=== PATIENT | female | born 1965 | race Caucasian/White ===

== ENCOUNTER → 2018-08-06 | Outpatient (CLI) | payer OTHER | END | disposition home or self-care (01) | LOC: NUC 09:45 | DX: S72.001 Fracture of unspecified part of neck of right femur (principal); X58.XXXD Exposure to other specified factors, subsequent encounter | CPT/HCPCS: 78315; A9503 ==

== ENCOUNTER → 2018-08-07 | Outpatient (CLI) | payer OTHER | END | disposition home or self-care (01) | LOC: NUC 09:35 | DX: S72.001 Fracture of unspecified part of neck of right femur (principal); X58.XXXD Exposure to other specified factors, subsequent encounter; M16.11 Unilateral primary osteoarthritis, right hip | CPT/HCPCS: 78806 ==

== ENCOUNTER → 2018-11-17 | Outpatient (CLI) | payer OTHER | END | disposition home or self-care (01) | LOC: HKI 09:51 | DX: M25.551 Pain in right hip (principal); M16.7 Other unilateral secondary osteoarthritis of hip | CPT/HCPCS: 73502 ==

== ENCOUNTER 2018-12-02 09:12 | Inpatient (IN) | payer OTHER ==
[2018-12-02] MEDS: ACETAMINOPHEN 1000MG/100ML IV 100 ML IVPB (10:48)
[2018-12-02] MEDS: ONDANSETRON 4 MG INJ IV (10:48)
[2018-12-02] MEDS: LANSOPRAZOLE 30 MG CAP PO (10:49)
[2018-12-02] MEDS: CELECOXIB 200 MG CAP PO (10:49)
[2018-12-02] MEDS: LACTATED RINGER'S 1,000 ML IV ×3 (10:50→20:41)
[2018-12-02 10:58] LABS: ADD MAN DIFF? NO
[2018-12-02 11:02] LABS: BASOPHILS % 0.8 % (0.0-2.0); EOSINOPHILS # 0.1 10^3/ul (0.0-0.5); EOSINOPHILS % 2.7 % (0.0-7.0); HEMOGLOBIN 12.1 g/dl (12.0-16.0); LYMPHOCYTES % 37.4 % (15.0-51.0); MEAN CORPUSCULAR HEMOGLOBIN 27.7 pg (29.0-33.0); MEAN CORPUSCULAR HGB CONC 32.7 g/dl (32.0-37.0); MEAN CORPUSCULAR VOLUME 84.7 fl (82.0-101.0); MEAN PLATELET VOLUME 11.1 fl (7.4-10.4); MONOCYTE # 0.4 10^3/ul (0.3-0.9); MONOCYTES % 6.9 % (0.0-11.0); NEUTROPHIL # 2.7 10^3/ul (1.6-7.5); PLATELET COUNT 180 10^3/UL (140-415); RED BLOOD COUNT 4.37 10^6/ul (4.20-5.40); RED CELL DISTRIBUTION WIDTH 14.6 % (11.5-14.5)
[2018-12-02 11:02] LABS: WHITE BLOOD COUNT 5.2 10^3/ul (4.8-10.8)
[2018-12-02 11:18] LABS: ANION GAP 8 (5-13); BLOOD UREA NITROGEN 16 mg/dl (7-20); CALCIUM 9.8 mg/dl (8.4-10.2); CARBON DIOXIDE 29 mmol/L (21-31); CHLORIDE 108 mmol/L (97-110); CREATININE 0.66 mg/dl (0.44-1.00); Estimated GFR > 60 mL/min (>60); GLUCOSE 95 mg/dl (70-220); POTASSIUM 4.2 mmol/L (3.5-5.1)
[2018-12-02 11:21] LABS: INR 0.94; PARTIAL THROMBOPLASTIN TIME 34.5 Sec (23.0-35.0); PROTIME 12.7 Sec (11.9-14.9)
[2018-12-02 11:27] LABS: SODIUM 145 mmol/L (135-144)
[2018-12-02] MEDS ORDERED: SEVOFLURANE 15 MIN (12:15)
[2018-12-02] MEDS ORDERED: CEFAZOLIN 1 GM INJ (12:15)
[2018-12-02] MEDS ORDERED: FENTAnyl 50 MCG/ML VIAL (12:15)
[2018-12-02] MEDS ORDERED: PROPOFOL 20 ML (12:15)
[2018-12-02] MEDS ORDERED: ROCURONIUM 50 MG INJ ×2 (12:15→13:14)
[2018-12-02] MEDS ORDERED: MIDAZOLAM 1 MG/ML 2 ML INJ (12:16)
[2018-12-02] MEDS ORDERED: LIDOCAINE 2% (SDV) 5 ML INJ (13:14)
[2018-12-02] MEDS ORDERED: DEXAMETHASONE 4 MG/ML 5 ML INJ (13:14)
[2018-12-02] MEDS: VANCOMYCIN 1 GM INJ (13:52)
[2018-12-02] MEDS: TOBRAMYCIN 1.2 GM POWDER (13:52)
[2018-12-02] MEDS: TRANEXAMIC ACID 1GM/100ML(PMX) 100 ML AT CLOSING IVPB (13:54)
[2018-12-02] MEDS: TRANEXAMIC ACID 1GM/100ML(PMX) 100 ML PRE-OP IVPB (13:54)
[2018-12-02] MEDS ORDERED: TRANEXAMIC ACID 1GM/100ML(PMX) 100 ML ×2 (17:06→17:07)
[2018-12-02] MEDS ORDERED: ONDANSETRON 4 MG INJ (17:49)
[2018-12-02] MEDS ORDERED: hydrALAzine 20 MG INJ IV (18:30)
[2018-12-02] MEDS ORDERED: HYDROmorphONE 1 MG/ML SYG IV (18:30)
[2018-12-02] MEDS ORDERED: NALOXONE (0.4 MG/ML) INJ IV (18:30)
[2018-12-02] MEDS ORDERED: NACL 0.9% 3 ML SYG IV (18:30)
[2018-12-02] MEDS ORDERED: MAGNESIUM HYDROXIDE 30ML CUP PO (18:30)
[2018-12-02] MEDS ORDERED: NA PHOSPHATE/BIPHOS 133 ML ENEMA PR (18:30)
[2018-12-02] MEDS ORDERED: METOCLOPRAMIDE 10 MG INJ IV (18:30)
[2018-12-02] MEDS ORDERED: HYDROmorphONE 1 MG/5 ML IV SYRINGE IV ×3 (18:30)
[2018-12-02] MEDS ORDERED: ALBUTEROL 0.083% (NEB) 2.5 MG/3 ML AMP HHN (18:30)
[2018-12-02] MEDS ORDERED: FENTAnyl 50 MCG/ML VIAL IV ×3 (18:30)
[2018-12-02] MEDS ORDERED: oxyCODONE 5 MG TAB PO ×3 (18:30)
[2018-12-02] MEDS ORDERED: BISACODYL 10 MG SUPP PR (18:30)
[2018-12-02] MEDS ORDERED: ONDANSETRON 4 MG INJ IV (18:30)
[2018-12-02] MEDS ORDERED: KETOROLAC 30 MG INJ IV (18:30)
[2018-12-02] MEDS ORDERED: EPHEDrine 25 MG/5 ML SYG IV (18:30)
[2018-12-02] MEDS ORDERED: DIPHENHYDRAMINE 50 MG INJ IV ×2 (18:30)
[2018-12-02] MEDS ORDERED: BETHANECHOL 25 MG TAB PO (18:30)
[2018-12-02] MEDS ORDERED: MEPERIDINE 25 MG INJ IV (18:30)
[2018-12-02] MEDS ORDERED: LABETALOL HCL 20MG INJ IV (18:30)
[2018-12-02] MEDS ORDERED: SENNA/DOCUSATE NA (8.6MG/50MG) TAB PO (18:30)
[2018-12-02] MEDS: CEFAZOLIN 2 GM/50 ML (PMX) 50 ML IVPB ×2 (19:00→19:35)
[2018-12-02] MEDS: DOCUSATE SODIUM 100 MG CAP PO (19:28)
[2018-12-02] MEDS ORDERED: GLUCOSE GEL 15 GRAM TUBE PO ×2 (19:30)
[2018-12-02] MEDS ORDERED: GLUCOSE GEL 15 GRAM TUBE BUCCAL (19:30)
[2018-12-02] MEDS ORDERED: DEXTROSE 50% 50 ML SYRINGE IV ×2 (19:30)
[2018-12-02] MEDS ORDERED: GLUCAGON 1 MG INJ IM (19:30)
[2018-12-02 19:33] LABS: HEMOGLOBIN A1C 5.3 % (0-5.9)
[2018-12-02] MEDS: GABAPENTIN 300 MG CAP PO (20:41)
[2018-12-02] MEDS: INSULIN ASPART [NOVOLOG] 3 ML PEN SC (20:44)
[2018-12-02] MEDS: ACETAMINOPHEN 500 MG TAB PO (22:22)
[2018-12-03] MEDS: CEFAZOLIN 2 GM/50 ML (PMX) 50 ML IVPB ×2 (02:00→10:45)
[2018-12-03] MEDS: ACCU-CHEK XX (02:00)
[2018-12-03 05:00] LABS: ADD MAN DIFF? NO
[2018-12-03 05:04] LABS: BASOPHILS % 0.2 % (0.0-2.0); HEMATOCRIT 23.7 % (37.0-47.0); HEMOGLOBIN 7.9 g/dl (12.0-16.0); LYMPHOCYTES % 9.9 % (15.0-51.0); MEAN CORPUSCULAR HEMOGLOBIN 27.6 pg (29.0-33.0); MEAN CORPUSCULAR HGB CONC 33.3 g/dl (32.0-37.0); MEAN CORPUSCULAR VOLUME 82.9 fl (82.0-101.0); MEAN PLATELET VOLUME 11.5 fl (7.4-10.4); MONOCYTE # 0.4 10^3/ul (0.3-0.9); MONOCYTES % 4.4 % (0.0-11.0); NEUTROPHIL # 8.5 10^3/ul (1.6-7.5); NEUTROPHILS % 85.1 % (39.0-77.0); PLATELET COUNT 148 10^3/UL (140-415); RED BLOOD COUNT 2.86 10^6/ul (4.20-5.40); RED CELL DISTRIBUTION WIDTH 14.4 % (11.5-14.5)
[2018-12-03] MEDS: PANTOPRAZOLE (EC) 40 MG TAB PO (05:11)
[2018-12-03] MEDS: ACETAMINOPHEN 500 MG TAB PO ×4 (05:12→21:24)
[2018-12-03 05:29] LABS: ANION GAP 7 (5-13); BLOOD UREA NITROGEN 14 mg/dl (7-20); CALCIUM 8.4 mg/dl (8.4-10.2); CARBON DIOXIDE 25 mmol/L (21-31); CHLORIDE 108 mmol/L (97-110); CREATININE 0.57 mg/dl (0.44-1.00); Estimated GFR > 60 mL/min (>60); GLUCOSE 129 mg/dl (70-220); POTASSIUM 4.2 mmol/L (3.5-5.1); SODIUM 140 mmol/L (135-144)
[2018-12-03 05:39] LABS: INR 1.11; PROTIME 14.4 Sec (11.9-14.9); PT RATIO 1.1
[2018-12-03] MEDS: LACTATED RINGER'S 1,000 ML IV ×2 (06:01→19:17)
[2018-12-03] MEDS: INSULIN ASPART [NOVOLOG] 3 ML PEN SC ×4 (07:50→21:00)
[2018-12-03] MEDS: DOCUSATE SODIUM 100 MG CAP PO ×2 (08:31→21:23)
[2018-12-03] MEDS: ASPIRIN (EC) 81 MG TAB PO ×2 (08:31→21:23)
[2018-12-03] MEDS ORDERED: ONDANSETRON 4 MG INJ IV (18:30)
[2018-12-03] MEDS: GABAPENTIN 300 MG CAP PO (21:23)
[2018-12-04] MEDS: ACCU-CHEK XX (02:00)
[2018-12-04] MEDS: PANTOPRAZOLE (EC) 40 MG TAB PO (05:35)
[2018-12-04] MEDS: ACETAMINOPHEN 500 MG TAB PO ×2 (05:36→13:41)
[2018-12-04 05:53] LABS: ADD MAN DIFF? NO
[2018-12-04 06:05] LABS: ABNORMAL IP MESSAGE 1; BASOPHILS % 0.2 % (0.0-2.0); EOSINOPHILS % 0.4 % (0.0-7.0); LYMPHOCYTES # 1.6 10^3/ul (0.8-2.9); LYMPHOCYTES % 30.5 % (15.0-51.0); MEAN CORPUSCULAR HEMOGLOBIN 27.7 pg (29.0-33.0); MEAN CORPUSCULAR HGB CONC 32.9 g/dl (32.0-37.0); MEAN CORPUSCULAR VOLUME 84.3 fl (82.0-101.0); MEAN PLATELET VOLUME 12.3 fl (7.4-10.4); MONOCYTE # 0.4 10^3/ul (0.3-0.9); NEUTROPHIL # 3.3 10^3/ul (1.6-7.5); NEUTROPHILS % 61.5 % (39.0-77.0); PLATELET COUNT 117 10^3/UL (140-415); RED BLOOD COUNT 2.49 10^6/ul (4.20-5.40); RED CELL DISTRIBUTION WIDTH 15.1 % (11.5-14.5)
[2018-12-04 06:05] LABS: WHITE BLOOD COUNT 5.3 10^3/ul (4.8-10.8)
[2018-12-04 06:09] LABS: HEMOGLOBIN 6.9 g/dl (12.0-16.0); POSITIVE DIFF @See below
[2018-12-04 06:27] LABS: ANION GAP 5 (5-13); BLOOD UREA NITROGEN 14 mg/dl (7-20); CALCIUM 8.7 mg/dl (8.4-10.2); CARBON DIOXIDE 31 mmol/L (21-31); CHLORIDE 108 mmol/L (97-110); CREATININE 0.64 mg/dl (0.44-1.00); Estimated GFR > 60 mL/min (>60); GLUCOSE 102 mg/dl (70-220); INR 1.05; POTASSIUM 3.8 mmol/L (3.5-5.1); PROTIME 13.8 Sec (11.9-14.9); PT RATIO 1.1; SODIUM 144 mmol/L (135-144)
[2018-12-04] MEDS: LACTATED RINGER'S 1,000 ML IV (07:26)
[2018-12-04] MEDS: INSULIN ASPART [NOVOLOG] 3 ML PEN SC ×2 (07:50→11:40)
[2018-12-04] MEDS: DOCUSATE SODIUM 100 MG CAP PO (08:36)
[2018-12-04] MEDS: ASPIRIN (EC) 81 MG TAB PO (08:36)
[2018-12-04 11:53] LABS: WHITE BLOOD COUNT 6.5 10^3/ul (4.8-10.8)
[2018-12-04 11:53] LABS: ABNORMAL IP MESSAGE 1; HEMATOCRIT 20.5 % (37.0-47.0); MEAN CORPUSCULAR HEMOGLOBIN 27.8 pg (29.0-33.0); MEAN CORPUSCULAR HGB CONC 32.7 g/dl (32.0-37.0); MEAN CORPUSCULAR VOLUME 85.1 fl (82.0-101.0); MEAN PLATELET VOLUME 12.1 fl (7.4-10.4); PLATELET COUNT 115 10^3/UL (140-415); RED BLOOD COUNT 2.41 10^6/ul (4.20-5.40); RED CELL DISTRIBUTION WIDTH 15.1 % (11.5-14.5)
[2018-12-04 12:06] LABS: POSITIVE DIFF @See below
[2018-12-04 12:15] LABS: HEMOGLOBIN 6.7 g/dl (12.0-16.0)
[2018-12-04 12:17] LABS: ADD MAN DIFF? YES
[2018-12-04 13:39] LABS: ANISOCYTOSIS 2+ (0-0); BAND NEUTROPHILS #M 0.1 10^3/ul (0.0-0.6); BAND NEUTROPHILS % (M) 3 % (0-4); EOSINOPHILS % (M) 1 % (0-7); LYMPHOCYTES #M 1.9 10^3/ul (0.8-2.9); LYMPHOCYTES % (M) 30 % (15-51); MONOCYTE #M 0.2 10^3/ul (0.3-0.9); MONOCYTES % (M) 4 % (0-11); PLATELET ESTIMATE DECREASED; POIKILOCYTOSIS 1+ (0-0); POLYCHROMASIA 3+ (0-0); SEGMENTED NEUTROPHILS (M) % 62 % (39-77); SMUDGE%M 3 % (0-0)
== END 2018-12-04 17:14 | disposition home health service (06) | DRG 470 ==
LOC: REC 09:12 → MS1 21:00
PROVIDERS: Orthopaedic Surgery Adult Reconstructive Orthopaedic Surgery
PROC: 0SR904Z Replacement of Right Hip Joint with Ceramic on Polyethylene Synthetic Substitute, Open Approach (ICD-10-PCS; principal; 2018-12-02 12:30)
DX: M12.551 Traumatic arthropathy, right hip (principal); D62 Acute posthemorrhagic anemia; R73.03 Prediabetes; S72.001S Fracture of unspecified part of neck of right femur, sequela; W19.XXXS Unspecified fall, sequela
CPT/HCPCS: 72170; 73500; 73530; 80048; 82962; 83036; 85025; 85610; 85730; 86850; 86900; 86901; 87070; 87075; 87081; 87102; 87116; 88300; 88304; 88311; 97110; 97116; 97163; 97165; 97530